=== PATIENT | male | born 1975 | race Hispanic/Latino ===

== ENCOUNTER → 2017-01-30 | Outpatient (CLI) | payer OTHER ==
--- NOTE | 2017-01-30 21:06 | ECHO ---
DATE OF PROCEDURE: 01/30/2017 AGE: 41 GENDER: Male HEIGHT: 63 inches WEIGHT: 153 pounds BODY SURFACE AREA: 1.73 m2 PATIENT LOCATION: Outpatient REFERRING PHYSICIAN: Kyler Mcnally MD INDICATION: Cardiomegaly. 2-D MEASUREMENTS: RV: 3.2 cm LV: 4.4 cm Septum: 1.1 cm Posterior wall: 1.1 cm Aortic root: 2.9 cm LA: 3.7 cm LVEF: 65% DOPPLER MEASUREMENTS: AV: 1.6 m/s LVOT: 0.96 m/s LVOT diameter: 1.8 cm MV-E: 74, A: 56, EA ratio: 1.3 Early mitral deceleration time: 118 ms PV: 0.86 m/s Pulmonary artery acceleration time: 120 ms RVSP: 25 mmHg IVC: 2.0 cm COMMENTS: Normal sinus rhythm without intraventricular conduction disturbance. Normal cardiac chamber sizes and wall thickness. On real-time imaging from the parasternal and apical projections wall motion was symmetrical and normal to hyperkinetic. Normal-appearing mitral valvular apparatus and leaflet excursion with no posterior systolic buckling. Three equal size aortic cusps of normal thickness and cusp separation. Normal aortic root size. No apparent intracardiac mass or pericardial effusion. Color flow Doppler study taken from the parasternal and apical projection showed trace mitral, trace aortic and mild tricuspid insufficiency (physiological findings). Guided continuous wave Doppler of his aortic valve showed a normal peak systolic velocity against LV outflow tract obstruction. Pulsed and continuous wave Doppler of his LV inflow tract taken from the apical four-chamber projection showed normal diastolic filling velocities and pattern against mitral stenosis or LV diastolic dysfunction. Pulsed and continuous wave Doppler of his pulmonary trunk showed a normal peak systolic velocity against RV outflow tract obstruction. Pulmonary artery acceleration time was also normal against an elevated pulmonary vascular resistance. Guided continuous wave Doppler of his tricuspid valve allowed our estimation of his right ventricular systolic pressure (within normal limits). His inferior vena cava was of normal size with normal respiratory collapse against an elevated central venous pressure. CONCLUSIONS: Normal-appearing echocardiogram/Doppler study. No sign of cardiac chamber enlargement. Left ventricular size, wall thickness, systolic and diastolic function were all normal.
== END ==
LOC: M CARPUL 08:03
PROVIDERS: ATTEND Physician Assistant
DX: I10 Essential (primary) hypertension (principal); B18.1 Chronic viral hepatitis B without delta-agent